=== PATIENT | male | born 1950 | race Hispanic/Latino ===

== ENCOUNTER 2021-03-21 05:18 | Emergency (ER) | payer MEDICARE, OTHER ==
[2021-03-21] MEDS ORDERED: Meclizine HCl 25 MG TAB ONE (05:43)
[2021-03-21] MEDS ORDERED: Dexamethasone 10 MG/ML VIAL ONE (06:04)
== END 2021-03-21 08:30 | disposition home or self-care (01) ==
LOC: ERS 05:18
DX: H83.09 Labyrinthitis, unspecified ear (principal); Z79.82 Long term (current) use of aspirin
CPT/HCPCS: 70450; 96372; J1100